=== PATIENT | female | born 1995 | race Two or more races ===

== ENCOUNTER 2018-04-22 20:30 | Observation (INO) | payer MEDICAID ==
[~2018-04-22 20:30] MED LIST: HYDR-4683 GT; LISI-275 PO
== END 2018-04-22 21:25 | disposition home or self-care (01) | DRG 565 ==
LOC: LDRP 20:30
PROVIDERS: ADMIT Specialist; ATTEND Specialist
DX: O47.03 False labor before 37 completed weeks of gestation, third trimester (principal); O10.913 Unspecified pre-existing hypertension complicating pregnancy, third trimester; O99.323 Drug use complicating pregnancy, third trimester; F19.90 Other psychoactive substance use, unspecified, uncomplicated; Z3A.31 31 weeks gestation of pregnancy
CPT/HCPCS: 59025; 81002; G0378

== ENCOUNTER 2018-05-04 09:55 | Observation (INO) | payer MEDICAID | END 2018-05-04 12:25 | disposition home or self-care (01) | DRG 566 | LOC: LDRP 09:55 | PROVIDERS: ADMIT Specialist; ATTEND Specialist | DX: O26.893 Other specified pregnancy related conditions, third trimester (principal); N89.8 Other specified noninflammatory disorders of vagina; O62.9 Abnormality of forces of labor, unspecified; Z3A.33 33 weeks gestation of pregnancy | CPT/HCPCS: 59025; 76818; 81002; 87070; G0378 ==

== ENCOUNTER 2018-06-07 22:28 | Observation (INO) | payer MEDICAID | END 2018-06-07 23:18 | disposition home or self-care (01) | DRG 566 | LOC: LDRP 22:28 | PROVIDERS: ADMIT Specialist; ATTEND Specialist | DX: O21.2 Late vomiting of pregnancy (principal); O10.913 Unspecified pre-existing hypertension complicating pregnancy, third trimester; O26.893 Other specified pregnancy related conditions, third trimester; L29.9 Pruritus, unspecified; R19.7 Diarrhea, unspecified; Z3A.38 38 weeks gestation of pregnancy | CPT/HCPCS: 59025; 81002; G0378 ==

== ENCOUNTER 2018-06-11 12:10 | Observation (INO) | payer MEDICAID ==
[2018-06-11] MEDS ORDERED: FERR-7 PO (13:08)
[2018-06-11] MEDS ORDERED: PREN-96 PO (13:08)
[2018-06-11 13:13] LABS: Urine WBC None Seen /hpf (0 - 5)
[2018-06-11 13:19] LABS: Urine Bacteria FEW /hpf (None Seen); Urine Blood Negative /uL (Negative); Urine Specific Gravity 1.017 (1.001-1.035)
[2018-06-11 13:37] LABS: Alcohol, Urine < 3.0 mg/dL (0-5); Amphetamine Screen, Urine NEGATIVE (NEGATIVE); Barbiturate Scree,Urine NEGATIVE (NEGATIVE); Benzodiazephine Screen, Urine NEGATIVE (NEGATIVE); Cannabinoid Screen, Urine NEGATIVE (NEGATIVE); Cocaine Screen, Urine NEGATIVE (NEGATIVE); Opiate Scree,Urine NEGATIVE (NEGATIVE); Phencyclidine Screen, Urine NEGATIVE (NEGATIVE)
[2018-06-11 14:38] LABS: Basophils # (auto) 0 uL; Basophils % (auto) 0.3 % (0.0-2.0); Eosinophils # (auto) 0 uL; Eosinophils % (auto) 0.9 % (0.0-7.0); Hemoglobin 10.4 g/dL (12.2-16.2); Monocytes # (auto) 0.3 uL
[2018-06-11 14:40] LABS: Lymphocytes # (auto) 0.9 uL; Lymphocytes % (auto) 16.9 % (10.0-50.0); Mean Corpuscular Hemoglobin 24.9 pg (28.0-32.0); Mean Corpuscular Hgb Conc. 32.6 g/dL (32.0-36.0); Mean Corpuscular Volume 76.5 fL (80.0-100.0); Monocytes % (auto) 5.2 % (0.0-12.0); Neutrophils % (auto) 76.7 % (37.0-80.0); Platelet Count (auto) 222 10^3/uL (140-450); Red Blood Cells 4.19 10^6/uL (4.0-5.20); Red Cell Distribution Width 17.7 % (11.8-14.3); White Blood Cell 5.2 10^3/uL (4.4-10.8)
[2018-06-11 14:53] LABS: Albumin 2.6 g/dL (3.4-5.0); Calcium 8.1 mg/dL (8.5-10.1); INR 0.85 (0.9-1.15); Partial Thromboplastin Time 24.3 sec (23.78-33.04); Prothrombin Time 9.2 sec (9.27-12.13); Uric Acid 5.1 mg/dL (2.6-6.0)
[2018-06-11 14:56] LABS: BUN/Creatinine Ratio 11.8; Bilirubin, Total 0.2 mg/dL (0.2-1.0); Total Protein 6.4 g/dL (6.4-8.2)
== END 2018-06-11 15:00 | disposition home or self-care (01) | DRG 566 ==
LOC: LDRP 12:10
PROVIDERS: ADMIT Obstetrics & Gynecology; ATTEND Obstetrics & Gynecology
DX: O26.893 Other specified pregnancy related conditions, third trimester (principal); R03.0 Elevated blood-pressure reading, without diagnosis of hypertension; Z3A.38 38 weeks gestation of pregnancy
CPT/HCPCS: 36415; 59025; 76818; 80053; 80307; 81001; 81002; 84550; 85025; 85610; 85730; G0378

== ENCOUNTER 2018-06-13 13:10 | Observation (INO) | payer MEDICAID ==
[~2018-06-13 13:10] MED LIST changes: +FERR-7 PO; -HYDR-4683 GT; -LISI-275 PO; +PREN-96 PO
[2018-06-13 14:24] LABS: Protein, Urine 10.7 mg/dL (0.0-11.9)
[2018-06-13 14:28] LABS: 24 Hr. Total Protein, Urine 318.3 mg/24 Hr (<149.1)
== END 2018-06-13 15:05 | disposition home or self-care (01) | DRG 566 ==
LOC: LDRP 13:10
PROVIDERS: ADMIT Obstetrics & Gynecology; ATTEND Obstetrics & Gynecology
DX: O10.913 Unspecified pre-existing hypertension complicating pregnancy, third trimester (principal); O99.323 Drug use complicating pregnancy, third trimester; F19.90 Other psychoactive substance use, unspecified, uncomplicated; Z87.891 Personal history of nicotine dependence; Z3A.39 39 weeks gestation of pregnancy
CPT/HCPCS: 76818; 84156; G0378

== ENCOUNTER 2018-06-15 11:52 | Observation (INO) | payer MEDICAID ==
[~2018-06-15] VITALS: Ht 167.6 cm; Wt 94.3 kg
== END 2018-06-15 13:15 | disposition home or self-care (01) | DRG 566 ==
LOC: LDRP 11:52
PROVIDERS: ADMIT Obstetrics & Gynecology; ATTEND Obstetrics & Gynecology
DX: O13.3 Gestational [pregnancy-induced] hypertension without significant proteinuria, third trimester (principal); O62.9 Abnormality of forces of labor, unspecified; Z87.891 Personal history of nicotine dependence; Z3A.39 39 weeks gestation of pregnancy
CPT/HCPCS: 59025; 76818; 81002; G0378

== ENCOUNTER 2019-11-13 08:44 | Emergency (ER) | payer MEDICAID ==
[~2019-11-13] VITALS: Ht 165.1 cm; Wt 96.6 kg
[2019-11-13 09:36] LABS: Basophils # (auto) 0 10 ^3/uL (0-0.2); Eosinophils # (auto) 0.1 10 ^3/uL (0-0.8); Hematocrit 34.6 % (36.0-46.0); Mean Corpuscular Hgb Conc. 31.7 g/dL (32.0-36.0); Monocytes # (auto) 0.7 10 ^3/uL (0-1.3); Neutrophils # (auto) 5.7 10 ^3/uL (1.6-8.6); Nucleated Red Blood Cells % 0.1 %; Red Blood Cells 4.56 10^6/uL (4.0-5.20); White Blood Cell 7.4 10^3/uL (4.4-10.8)
[2019-11-13 09:38] LABS: Basophils % (auto) 0.3 % (0.0-2.0); Eosinophils % (auto) 1.2 % (0.0-7.0); Lymphocytes # (auto) 0.9 10 ^3/uL (0.4-5.4); Lymphocytes % (auto) 11.7 % (10.0-50.0); Mean Corpuscular Volume 75.9 fL (80.0-100.0); Neutrophils % (auto) 77.8 % (37.0-80.0); Platelet Count (auto) 226 10^3/uL (140-450); Red Cell Distribution Width 17.3 % (11.8-14.3)
[2019-11-13 10:00] LABS: Albumin 3.2 g/dL (3.4-5.0); Calcium 8.5 mg/dL (8.5-10.1); Potassium 3.9 mmol/L (3.5-5.1)
[2019-11-13 10:04] LABS: BUN/Creatinine Ratio 12.3; Bilirubin, Total 0.3 mg/dL (0.2-1.0); Total Protein 7.6 g/dL (6.4-8.2)
[2019-11-13 10:16] LABS: Urine Bacteria FEW /hpf (None Seen); Urine Blood TRACE /uL (Negative); Urine Specific Gravity 1.032 (1.001-1.035); Urine WBC 20 /hpf (0 - 5)
[2019-11-13 12:58] VITALS: BP 127/77
== END 2019-11-13 12:59 | disposition home or self-care (01) ==
LOC: ER 08:44
DX: B34.9 Viral infection, unspecified (principal); R50.9 Fever, unspecified; I10 Essential (primary) hypertension; Z20.828 Contact with and (suspected) exposure to other viral communicable diseases
CPT/HCPCS: 36415; 71045; 80053; 81001; 83615; 85025; 87070; 87804; 87880; 99284; U0003